=== PATIENT | male | born 1955 | race Caucasian/White ===

== ENCOUNTER → 2021-12-13 09:54 | Outpatient (BNVA) | payer OTHER, MEDICARE, SELFPAY | PROVIDERS: PCP Internal Medicine; Visit Provider Psychiatry & Neurology Neurology | DX: R56.9 Unspecified convulsions (principal); R26.9 Unspecified abnormalities of gait and mobility; Z79.899 Other long term (current) drug therapy | CPT/HCPCS: 99212 ==

== ENCOUNTER → 2022-05-23 10:23 | Outpatient (BNVA) | payer MEDICARE, SELFPAY | PROVIDERS: PCP Internal Medicine; Visit Provider Nurse Practitioner Family | DX: R56.9 Unspecified convulsions (principal); R26.9 Unspecified abnormalities of gait and mobility; Z79.899 Other long term (current) drug therapy | CPT/HCPCS: 99212 ==

== ENCOUNTER → 2022-12-05 09:13 | Outpatient (BNVA) | payer OTHER, MEDICARE, SELFPAY | PROVIDERS: PCP Internal Medicine; Visit Provider Nurse Practitioner Family ==

== ENCOUNTER 2023-06-13 08:39 | Outpatient (AMB) | payer OTHER, MEDICARE, SELFPAY ==
--- NOTE | 2023-06-13 08:45 | A.OFFVIS_ITS ---
Intake Vital Signs 06/13/23 08:48 Height 4 ft 8 in Weight 202 lb 8 oz BMI 45.4 BP 136/78 Blood Pressure Location Lt brachial Position Sitting Respiration 16 Pulse 70 Pulse Source Pulse Oximeter Pulse Oximetry (%) 98 Oxygen Delivery Method Room Air Intake Visit Reasons: 6 month f/u - Confirmed Intake Note: Pt presents for a 6 month follow up for gait disorder. 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 No breakout seizure reported. Pt is on carbamazepine ER 200 mg daily, and compliant the medication. His last seizure was in 1984, 2020 . No seizures since then. His dizziness and gait has been improved. He gets lightheadedness when he turns quick. No falls reported. He had a lab done in December and the cholesterol level was elevated and and followed by GI and monitoring for fatty liver. Pt gained 15 lb over the last year. Pt states that sleep study ordered and will schedule soon. [facility] Medical History GERD (gastroesophageal reflux disease) Hypothyroidism Lipoma of shoulder Mild developmental delay Seizures Surgical History H/O colonoscopy Family History Mother Cancer Family/Other Cancer Social History Alcohol intake: current Alcohol intake frequency: holidays/special occasions only Patient Tobacco Use Status: Never used Tobacco Review of Systems Const All systems reviewed & are unremarkable except as noted in HPI and below Physical Exam Vital Signs: Last Vital Signs Pulse 70 06/13/23 08:48 Resp 16 06/13/23 08:48 BP 136/78 06/13/23 08:48 Pulse Ox 98 06/13/23 08:48 Oxygen Delivery Method Room Air 06/13/23 08:48 BMI result Body Mass Index 45.4 Const General: cooperative and healthy appearing Nutritional Appearance: overweight Orientation/consciousness: patient oriented x3 Eyes Pupils: Equal, round and reactive pupils present Neuro General: patient oriented x3, tone normal and moves all extremities Cranial nerves: Yes CN's II-XII intact bilaterally, Yes Equal, round and reactive pupils present, Yes Bilaterally intact EOM present, Yes Normal facial strength present and Yes Midline tongue present Cognition (Neuro): normal cognition Gait exam (Neuro): Normal gait present Coordination: [id number] test normal Assessment & Plan Assessment & Plan (1) Seizures: Code(s): R56.9 - Unspecified convulsions (2) Gait disorder: Code(s): R26.9 - Unspecified abnormalities of gait and mobility Plan Advised patient to continue to take tegretol XR 200mg q daily. Compliance stressed. Continue to do daily exercise. Increase PO fluid intake to prevent light headedness. Wt reduction advised. Coding Level of Care Code Est Pt Level 3 (52251) Diagnoses Seizures R56.9 Gait disorder R26.9
[2023-06-13 08:48] VITALS: BP 136/78; PULSE 70; RESP 16; O2SAT 98; BMI 45.4
== END 2023-06-13 09:04 | disposition home or self-care (01) ==
PROVIDERS: PCP Internal Medicine; Visit Provider Nurse Practitioner Family
DX: R56.9 Unspecified convulsions (principal); R26.9 Unspecified abnormalities of gait and mobility
CPT/HCPCS: 99213

== ENCOUNTER → 2023-06-13 08:39 | Outpatient (BNVA) | payer OTHER, MEDICARE, SELFPAY | PROVIDERS: PCP Internal Medicine; Visit Provider Nurse Practitioner Family ==

== ENCOUNTER 2024-04-10 09:02 | Outpatient (AMB) | payer OTHER, MEDICARE, SELFPAY ==
--- NOTE | 2024-04-10 09:04 | A.OFFVIS_ITS ---
Vital Signs 04/10/24 09:06 Height 4 ft 8 in Weight 195 lb BMI 43.7 Intake Visit Reasons: 6 mo f/u - Intake Note: Patient presents for 6 month follow up Allergies Sulfa (Sulfonamide Antibiotics) Allergy (Mild, Verified 04/10/24 09:07) Unknown Medication List - Last Reconciled 04/10/24 by Adelina Breaux MD albuterol sulfate 90 mcg/actuation 2 puffs inhalation Q6H PRN atorvastatin 80 mg PO DAILY carbamazepine ER 200 mg PO DAILY 90 days cetirizine 10 mg PO DAILY PRN diclofenac sodium 75 mg PO DAILY ezetimibe 10 mg PO DAILY ferrous sulfate 325 mg PO DAILY fluticasone propionate 220 mcg/actuation (Flovent HFA) 1 puff inhalation BID ipratropium-albuterol 0.5 mg-3 mg(2.5 mg base)/3 mL 3 mL inhalation Q6H PRN levothyroxine 25 mcg PO DAILY montelukast 10 mg PO BEDTIME multivitamin (Daily Multi-Vitamin tablet) 1 tab PO DAILY vit C-E-zinc gfi-ociubv-usvuia 50 mg-15 unit- 4.5 mg-2.5 mg ([employer]) 1 tab PO DAILY HPI Comments Details: 68 y/o male with seizure disorder, vertigo, mild gait disorder presents for follow up. No breakout seizure reported. Patient is on carbamazepine ER 200 mg daily, and compliant the medication. His last seizure was in 2020 . No seizures since then. His dizziness and gait has been improved. He gets lightheadedness when he turns quick. No falls reported. He had a labs done by his PCP and the cholesterol level was elevated and and followed by GI and monitoring for fatty liver. Pt gained 15 lb over the last year. He was diagnosed with sleep apnea but he could not tolerate CPAP. Jul 2023 at [place]. [facility] Medical History (Updated 04/10/24 @ 09:18 by Adelina Breaux MD) Obstructive sleep apnea Mild developmental delay Lipoma of shoulder Hypothyroidism Seizures GERD (gastroesophageal reflux disease) Surgical History H/O colonoscopy Family History Mother Cancer Family/Other Cancer Social History Alcohol intake: current Alcohol intake frequency: holidays/special occasions only Patient Tobacco Use Status: Never used Tobacco Physical Exam Vital Signs: BMI result Body Mass Index 43.7 Const General: cooperative and healthy appearing Nutritional Appearance: overweight Orientation/consciousness: patient oriented x3 Eyes Pupils: Equal, round and reactive pupils present Neuro General: patient oriented x3, tone normal and moves all extremities Cranial nerves: Yes CN's II-XII intact bilaterally, Yes Equal, round and reactive pupils present, Yes Bilaterally intact EOM present, Yes Normal facial strength present and Yes Midline tongue present Cognition (Neuro): normal cognition Gait exam (Neuro): Normal gait present Coordination: [id number] test normal Assessment & Plan Assessment & Plan (1) Seizures: Code(s): R56.9 - Unspecified convulsions Category: Medical (2) Gait disorder: Code(s): R26.9 - Unspecified abnormalities of gait and mobility Category: Medical (3) Obstructive sleep apnea: Code(s): G47.33 - Obstructive sleep apnea (adult) (pediatric) Category: Medical Plan Advised patient to continue to take tegretol XR 200mg q daily. Compliance stressed. Lab reports Feb 2024 - CBC CMP normal SLeep study report from PCP. Medications: Refilled carbamazepine ER 200 mg PO DAILY 90 days 90 tabs 4RF Coding Level of Care Code Est Pt Level 4 (68855) Complex EM visit Add On G2211 Diagnoses Seizures R56.9 Gait disorder R26.9 Obstructive sleep apnea G47.33
[2024-04-10 09:06] VITALS: BMI 43.7
== END 2024-04-10 09:23 | disposition home or self-care (01) ==
PROVIDERS: PCP Internal Medicine; Visit Provider Psychiatry & Neurology Neurology
DX: R56.9 Unspecified convulsions (principal); R26.9 Unspecified abnormalities of gait and mobility; G47.33 Obstructive sleep apnea (adult) (pediatric)
CPT/HCPCS: 99214; G2211

== ENCOUNTER → 2024-04-10 09:02 | Outpatient (BNVA) | payer OTHER, MEDICARE, SELFPAY | PROVIDERS: PCP Internal Medicine; Visit Provider Psychiatry & Neurology Neurology ==

== ENCOUNTER 2025-04-10 09:56 | Outpatient (AMB) | payer OTHER, MEDICARE, SELFPAY ==
--- NOTE | 2025-04-10 09:58 | MHC.OFFVIS ---
Vital Signs 04/10/25 10:01 Height 4 ft 8 in Weight 201 lb 8 oz BMI 45.2 BP 146/82 H Blood Pressure Location Rt brachial Position Sitting Pulse 65 Pulse Source Pulse Oximeter Pulse Oximetry (%) 96 Oxygen Delivery Method Room Air Intake Visit Reasons: 6 mo f/u - Intake Note: Follow up Seizures, Gait disorder and [employer] Operator Required: No Accompanied by: Self / Same As Patient Allergies Sulfa (Sulfonamide Antibiotics) Allergy (Mild, Verified 04/10/25 09:58) Unknown Medication List - Last Reconciled 04/10/25 by Adelina Breaux MD albuterol sulfate 90 mcg/actuation 2 puffs inhalation Q6H PRN atorvastatin 80 mg PO DAILY carbamazepine ER 200 mg PO DAILY 90 days cetirizine 10 mg PO DAILY PRN cholecalciferol (vitamin D3) (Vitamin D3) 50 mcg PO DAILY diclofenac sodium 75 mg PO DAILY ezetimibe 10 mg PO DAILY ferrous sulfate 325 mg PO DAILY fluticasone propionate 220 mcg/actuation (Flovent HFA) 1 puff inhalation BID inhalational spacing device ([employer] [facility] spacer) As directed ipratropium-albuterol 0.5 mg-3 mg(2.5 mg base)/3 mL 3 mL inhalation Q6H PRN levothyroxine 25 mcg PO DAILY montelukast 10 mg PO BEDTIME multivitamin (Daily Multi-Vitamin tablet) 1 tab PO DAILY vit C-E-zinc sve-fnpdma-ozmnqc 50 mg-15 unit- 4.5 mg-2.5 mg ([employer] [facility]) 1 tab PO DAILY HPI Comments Details: 69 y/o male with seizure disorder, vertigo, mild gait disorder presents for follow up. he is stable No breakout seizure reported. Patient is on carbamazepine ER 200 mg daily, and compliant the medication. His last seizure was in 2020 . No seizures since then. His dizziness and gait has been improved. He gets lightheadedness when he turns quick. No falls reported. He was diagnosed with sleep apnea but he could not tolerate CPAP. Jul 2023 at [place]. he wants to see if [facility] will help him [facility] Medical History Obstructive sleep apnea Mild developmental delay Lipoma of shoulder Hypothyroidism Seizures GERD (gastroesophageal reflux disease) Surgical History H/O colonoscopy Family History Mother Cancer Family/Other Cancer Social History Alcohol intake: current Alcohol intake frequency: holidays/special occasions only Patient Tobacco Use Status: Never used Tobacco Physical Exam Vital Signs: Last Vital Signs Pulse 65 04/10/25 10:01 BP 146/82 H 04/10/25 10:01 Pulse Ox 96 04/10/25 10:01 Oxygen Delivery Method Room Air 04/10/25 10:01 BMI result Body Mass Index 45.2 Const General: cooperative and healthy appearing Nutritional Appearance: overweight Orientation/consciousness: patient oriented x3 Eyes Pupils: Equal, round and reactive pupils present Neuro General: patient oriented x3, tone normal and moves all extremities Cranial nerves: Yes CN's II-XII intact bilaterally, Yes Equal, round and reactive pupils present, Yes Bilaterally intact EOM present, Yes Normal facial strength present and Yes Midline tongue present Cognition (Neuro): normal cognition Gait exam (Neuro): Normal gait present Coordination: [id number] test normal Assessment & Plan Assessment & Plan (1) Seizures: Code(s): R56.9 - Unspecified convulsions Category: Medical (2) Gait disorder: Code(s): R26.9 - Unspecified abnormalities of gait and mobility Category: Medical (3) Obstructive sleep apnea: Code(s): G47.33 - Obstructive sleep apnea (adult) (pediatric) Category: Medical Plan Advised patient to continue to take tegretol XR 200mg q daily. Compliance stressed. Lab reports October 2024 - CBC CMP normal repeat sleep study for [facility] Orders: Orders RT home sleep study Today G47.33 - Obstructive sleep apnea (adult) (pediatric) Medications: Refilled carbamazepine ER 200 mg PO DAILY 90 tabs 4RF 90 days Coding Level of Care Code Est Pt Level 4 (24147) Diagnoses Seizures R56.9 Gait disorder R26.9 Obstructive sleep apnea G47.33
[2025-04-10 10:01] VITALS: BP 146/82; PULSE 65; O2SAT 96; BMI 45.2
== END 2025-04-10 10:21 | disposition home or self-care (01) ==
LOC: HO.HSMS 09:57
PROVIDERS: PCP Internal Medicine; Visit Provider Psychiatry & Neurology Neurology
DX: R56.9 Unspecified convulsions (principal); R26.9 Unspecified abnormalities of gait and mobility; G47.33 Obstructive sleep apnea (adult) (pediatric)
CPT/HCPCS: 99214